=== PATIENT | female | born 1975 | race African-American/Black ===

== ENCOUNTER 2025-04-08 12:14 | Outpatient (CLI) | payer OTHER, SELFPAY ==
--- NOTE | ~2025-04-08 | MR_ITS ---
EXAMINATION: MR brain/brain stem wo/w con DATE: 04/08/2025 13:14 INDICATION: Anosmia TECHNIQUE: Magnetic resonance imaging (MRI) of the brain and brainstem was performed without and with 20 mL ProHance intravenous contrast. Sequences included sagittal and axial T1-weighted SE, axial dif fusion-weighted FS SE, axial 3D SWAN, axial T2-weighted FLAIR, and axial T2-weighted FSE. Postcontras t axial and coronal T1-weighted SE was obtained. Apparent diffusion coefficient (ADC) maps were creat ed. COMPARISON: None. FINDINGS: There are no areas of restricted diffusion to suggest acute infarction. No intracranial hemorrhage or abnormal intracranial mass lesion. There are scattered areas of nonspecific increased T2-weighted si gnal intensity in the cerebral white matter, predominantly involving the deep and periventricular whi te matter. There are no intraparenchymal signal abnormalities seen on the other pulse sequences. The ventricles are symmetric and normal in size. There are no abnormal extra-axial fluid collections. Bert w voids are seen in the cerebral arteries on the T2-weighted sequences consistent with their expected patency. Mild mucoperiosteal thickening in the bilateral ethmoid sinuses. Visualized orbits and soft tissues are unremarkable. There are no areas of abnormal enhancement on the post contrast images. IMPRESSION: 1. Normal for age brain. No acute intracranial process or abnormally enhancing brain lesions. Reviewed, dictated and finalized at location A.
--- OUTSIDE RECORDS SUMMARY | 2025-04-08 12:21 | XMS_ITS | Patient Health Record ---
Author Organization [facility] Address [address] [place] [address] Care Team Providers Care Blackjack Supervisor Name Role Phone Elmer Mayorga [phone] Allergies No Known Allergies Reason For Referral No Information Social History Tobacco Use: Social History Observation Description Date Details (start date - stop date) Never Smoker NA - NA Tobacco Use/Smoking Question Answer Notes Are you a nonsmoker Plan Of Treatment No Information Medical (General) History Surgical History Surgery Date(Month/Year)
--- OUTSIDE RECORDS SUMMARY | 2025-04-08 12:22 | XMS_ITS | Clinical Summary ---
Author Organization [facility] Address [address] [place] [address] Phone Care Team Providers Care Ultrasonic Hand Solderer Name Role Phone Unavailable Primary Care Provider Unavailabl e Allergies No known active allergies Medications amLODIPine (NORVASC) 10 mg tablet Take 1 Tablet (10 mg) by mouth daily. 30 Tablet 01/03/2022 Active Active Problems Problem Noted Date Diagnosed Date Uncontrolled hypertension 01/01/2022 Morbidly obese 01/01/2022 Pulmonary nodule 01/01/2022 Resolved Problems Problem Noted Date Diagnosed Date Resolved Date Other chest pain 01/01/2022 01/02/2022 Family History Medical History Relation Name Comments Lung Cancer Maternal Grandmother Lung Cancer Mother Relation Name Status Comments Maternal Grandmother Mother Social History Tobacco Use Types Packs/Day Years Used Date Smoking Tobacco: Former Alcohol Use Standard Drinks/Week Comments Yes 0 (1 standard drink = 0.6 oz pur e alcohol) Comments Unknown Sex and Gender Information Value Date Recorded Sex Assigned at Not on file Legal Sex Female 12:50 PM [employer]UMBER BU[employer]ER Gender Identity Not on file Sexual Orientation Not on file Last Filed Vital Signs Vital Sign Reading Time Taken Comments Blood Pressure 139/97 01/02/2022 12:00 PM LUMBER BUYER Pulse 87 01/02/2022 12:00 PM LUMBER BUYER Temperature 37.2 C (99 F) 01/02/2022 12:00 PM LUMBER BUYER Respiratory Rate 21 01/02/2022 12:0 0 PM LUMBER BUYER Oxygen Saturation 100% 01/02/2022 12: 00 PM LUMBER BUYER Inhaled Oxygen Concentration - - Weight 131.7 kg (290 lb 6.4 oz) 01/01/2022 6:07 PM LUMBER BUYER Height 175.3 cm (5' 9 ) 01/01/2022 6:07 PM LUMBER BUYER Body Mass Index 42.88 01/01/2022 6:07 PM LUMBER BUYER Plan of Treatment Health Maintenance Due Date Last Done Comments DTAP/TDAP/TD VACCINES (1 - Tdap) 1992 HEPATITIS B VACCINES (1 of 3 - 19+ 3-dose series) 02/26 HPV/Cotest (21-29) 1994 CERVICAL CANCER SCREENING 2003 HPV/Cotest (30-65) 2003 PAP SMEAR 2003 BREAST CANCER SCREENING 2013 COLORECTAL SCREENING 2018 Colorectal Cancer Screening 2018 FIT-DNA Q 3 years 2018 FIT/FOBT Q 1 year 2018 Flex Sig/CT Colonography Q 5 years 2018 ZOSTER VACCINE (1 of 2) 2023 INFLUENZA VACCINE (#1) 2024 Pre-Diabetes and Diabetes Screening 01/01/202501/01 Procedures Procedure Name Priority Date/Time Associated Diagnosis Comments HEMOGLOBIN A1C Stat 01/01/2022 1:19 PM LUMBER BUYER from Last 3 Months or Most Recently Relevant to Health Maintenance Results * HEMOGLOBIN A1C (01/01/2022 1:19 PM LUMBER BUYER) HEMOGLOBIN A1C 5.5 <5.7 % 01/01/2022 6:11 PM LUMBER BUYER [facility] EST. AVG GLUCOSE, A1C 111 mg/dL 01/01/2022 6:11 PM LUMBER BUYER [facility] Blood Venipuncture / Unknown 01/01/2022 1:19 PM LUMBER BUYER 01/01/2022 1:47 PM LUMBER BUYER Narrative [facility] - 01/01/2022 6:11 PM LUMBER BUYER HGB A1C INTERPRETATION NORMAL: <5.7% PRE-DIABETES: 5.7 - 6.4% DIABETES: 6.5% OR GREATER us Tia GODDARD CHEMISTRY ORDERABLES Final Re sult [facility] CLIA# [id number] [address] [place] [address] from Last 3 Months or Most Recently Relevant to Health Maintenance Insurance Advance Directives For more information, please contact: [phone] * Full Code (Latest Code Status on File) Date Activated Date Inactivated Comments 01/01/2022 11:48 PM 01/02/2022 8:06 PM
--- OUTSIDE RECORDS SUMMARY | 2025-04-08 12:22 | XMS_ITS | Data Portability ---
Author Organization [place] [facility] [employer] [facility] [place], Main Office Address [address] [place] [address] Assessment Encounter Date Assessment Date Assessment LastModified by Organization Details LastModified Time 02/15/2025 02/15/2025 Flu shot: declines COVID vaccines: declines TDap: declines Mammogram: 2022, ordered today WWE: Normal 05/18/2023 [email or web address] Not available 02/15/2025 14:21:14 Plan of Treatment Reminders Order Date Submit Date Provider Last Modified By Organization Details Last Modified Time Details Appointments Follow Up 15 2024 01:00P LIANE Dailey Not available Not available Not available Lab urinalysi s, dipstick 2024 025 [facility], [address] [place] [address], [address], 03/14/2025 16:21:21 lipid panel, serum 2024 025 [facility], [address], [place], [address], 02/22/2025 08:20:24 vaginal pathogens panel, WILBERT+probe , vaginal fluid 2024 025 [facility], [address], [place], [address], 02/22/2025 08:20:24 HbA1c (hemoglob in A1c), blood 2024 025 [email or web address] [facility], [address], [place], [address], 02/22/2025 08:20:23 CBC w/ auto diff 2024 025 [place] [id number] [facility], 2022 [address], [address], [place], [address], 02/22/2025 08:20:24 CMP, serum or plasma 2024 025 RANCHO CORDOVA [facility], [address], [place], [address], 02/19/2025 12:35:38 TSH, ultra-sen sitive, serum 2024 025 [facility], [address], [place], [address], 02/22/2025 08:20:24 pap, IG + reflex HR HPV 2022 023 [facility] (Lab), [address] [place], [address], 05/19/2023 23:46:16 lipid panel, serum [address] (Lab), [address] [place], [address], 05/11/2023 08:29:11 TSH, serum or plasma [address] (Lab), [address] [place], [address], 05/11/2023 08:29:10 CBC w/ auto diff [address] (Lab), [address] [place], [address], 05/11/2023 08:29:10 CMP, serum or plasma 2022 023 [facility] (Lab), [address] [place], [address], 05/11/2023 08:29:10 glycohemo globin, total, blood 2022 023 [facility] (Lab), [address] [place], [address], 05/11/2023 08:29:10 Referral otolaryng ologist referral 2022 023 [email or web address] Bang Machuca MD, [address], [place], [address], 05/09/2023 11:51:51 Procedures None recorded. Surgeries None recorded. Imaging MRI, brain, w/wo contrast - Updated order. 2024 025 [facility], [address] [facility] [address], [place], [address], 04/08/2025 11:48:16 MAMMO, screening , digital, bilateral - Please call patient to schedule. 2024 025 [facility], [address], [place], [address], 02/18/2025 08:55:19 MAMMO, screening , digital, bilateral 2022 [email or web address] [place] [address] - Radiology, [address] [place], [address], 04/27/2023 16:26:33 CT, chest, w/o contrast - multiple lung nodules found on 02/02/22 ct chest. 1 year fu now from january 2022 imaging. 2022 023 [facility] - Radiology, [address] [place], [address], 05/17/2023 16:02:58 Medication Orders losartan 50 mg tablet 2024 025 [id number], [address], [place], [id number], 02/15/2025 14:26:28 doxycycli ne hyclate 100 mg capsule [address] [facility], [address] [place] [address], [place], [id number], 05/17/2023 17:30:27 losartan 100 mg tablet [address] [facility]995, [address], [place], [id number], 02/15/2025 14:05:09 Patient TargetsNo targets recorded. Patient Instructions Encounter Date Encounter Id Patient Instructions Last Modified By Organization Details Last Modified Time 04/13/2023 [id number] FU in 1 year for wellness. FU in 6 mo for htn. [email or web address] Not available 04/13/2023 17:26:15 Reason for Referral Mapping Specialist Referral fo r Loss of sense of smell Referring Physician: Jael Ortiz, Family Medicine, Encounter Date: 04/13/2023 Results Created Date Observation Date Name Description Value Unit Range Abnormal Flag Note LastModifiedBy Organization Detail LastModifiedTime 05/17/2005/17/2023 CBC/C OMPLE TE BLD COUNT W/DIF F white blood cells 7.9 x10'3 /uL 4.2-10 .8 Not Available [facility] (Lab) [address] [place], [address], 05/17/2023 10:47:45 05/17/2005/17/2023 CBC/C OMPLE TE BLD COUNT W/DIF F red blood cells 4.39 x10'6 /uL 3.80-5 .20 Not Available [facility] (Lab) [address] [place], [address], 05/17/2023 10:47:45 05/17/20 23 05/17/2023 CBC/C OMPLE TE BLD COUNT W/DIF F hemoglobin 13.9 g/dL 12.0-1 5.6 Not Available [facility] (Lab) [address] [place], [address], 05/17/2023 10:47:45 05/17/20 23 05/17/2023 CBC/C OMPLE TE BLD COUNT W/DIF F hematocrit 42.4 % 35.7-4 5.7 Not Available [facility] (Lab) [address] [place], [address], 05/17/2023 10:47:45 05/17/20 23 05/17/2023 CBC/C OMPLE TE BLD COUNT W/DIF F mean red cell volume 96.6 fL 82.0-9 9.0 Not Available [facility] (Lab) [address] [place], [address], 05/17/2023 10:47:45 05/17/20 23 05/17/2023 CBC/C OMPLE TE BLD COUNT W/DIF F mean red cell hemoglobin 31.7 pg 27.0-3 3.0 Not Available [facility] (Lab) [address] [place], [address], 05/17/2023 10:47:45 05/17/20 23 05/17/2023 CBC/C OMPLE TE BLD COUNT W/DIF F mean RBC HGB concentratio n 32.8 g/dL 31.0-3 6.0 Not Available [facility] (Lab) [address] [place], [address], 05/17/2023 10:47:45 05/17/20 23 05/17/2023 CBC/C OMPLE TE BLD COUNT W/DIF F red cell distribution width 13.7 % 11.8-1 5.5 Not Available [facility] (Lab) [address] [place], [address], 05/17/2023 10:47:45 05/17/20 23 05/17/2023 CBC/C OMPLE TE BLD COUNT W/DIF F platelets 225 x10'3 /uL 150-40 0 Not Available [facility] (Lab) [address] [place], [address], 05/17/2023 10:47:45 05/17/20 23 05/17/2023 CBC/C OMPLE TE BLD COUNT W/DIF F mean platelet volume 10.2 fL 9.0-12 .4 Not Available [facility] (Lab) [address] [place], [address], 05/17/2023 10:47:45 05/17/20 23 05/17/2023 CBC/C OMPLE TE BLD COUNT W/DIF F neutrophils 60.3 % 39.0-7 2.0 Not Available [facility] (Lab) [address] [place], [address], 05/17/2023 10:47:45 05/17/20 23 05/17/2023 CBC/C OMPLE TE BLD COUNT W/DIF F lymphocytes 31.5 % 16.0-4 7.0 Not Available [facility] (Lab) [address] [place], [address], 05/17/2023 10:47:45 05/17/20 23 05/17/2023 CBC/C OMPLE TE BLD COUNT W/DIF F monocytes 6.3 % 5.0-12 .0 Not Available [facility] (Lab) [address] [place], [address], 05/17/2023 10:47:45 05/17/20 23 05/17/2023 CBC/C OMPLE TE BLD COUNT W/DIF F eosinophils 1.1 % 1.0-7. 0 Not Available [facility] (Lab) [address] [place], [address], 05/17/2023 10:47:45 05/17/20 23 05/17/2023 CBC/C OMPLE TE BLD COUNT W/DIF F basophils 0.4 % 0.0-2. 0 Not Available [facility] (Lab) [address] [place], [address], 05/17/2023 10:47:45 05/17/20 23 05/17/2023 CBC/C OMPLE TE BLD COUNT W/DIF F immature granulocytes 0.4 % 0.00-0 .50 Not Available [facility] (Lab) [address] [place], [address], 05/17/2023 10:47:45 05/17/20 23 05/17/2023 CBC/C OMPLE TE BLD COUNT W/DIF F neutrophils, absolute count 4.75 x10'3 /uL 1.5-8. 0 Not Available [facility] (Lab) [address] [place], [address], 05/17/2023 10:47:45 05/17/20 23 05/17/2023 CBC/C OMPLE TE BLD COUNT W/DIF F lymphocytes, absolute count 2.48 x10'3 /uL 1.07-3 .43 Not Available [facility] (Lab) [address] [place], [address], 05/17/2023 10:47:45 05/17/20 23 05/17/2023 CBC/C OMPLE TE BLD COUNT W/DIF F monocytes, absolute count 0.50 x10'3 /uL 0.29-0 .99 Not Available [facility] (Lab) [address] [place], [address], 05/17/2023 10:47:45 05/17/20 23 05/17/2023 CBC/C OMPLE TE BLD COUNT W/DIF F eosinophils, absolute count 0.09 x10'3 /uL 0.02-0 .53 Not Available [facility] (Lab) [address] [place], [address], 05/17/2023 10:47:45 05/17/20 23 05/17/2023 CBC/C OMPLE TE BLD COUNT W/DIF F basophils, absolute count 0.03 x10'3 /uL 0.01-0 .08 Not Available [facility] (Lab) [address] [place], [address], 05/17/2023 10:47:45 05/17/20 23 05/17/2023 CBC/C OMPLE TE BLD COUNT W/DIF F immature granulocytes ,absolute 0.03 x10'3 /uL 0.00-0 .05 Not Available [facility] (Lab) [address] [place], [address], 05/17/2023 10:47:45 05/17/20 23 05/17/2023 CBC/C OMPLE TE BLD COUNT W/DIF F nucleated red blood cells 0.0 % -0 Not Available [facility] (Lab) [address] [place], [address], 05/17/2023 10:47:45 05/17/20 23 05/17/2023 CBC/C OMPLE TE BLD COUNT W/DIF F NRBC# 0.00 x10'3 /uL Not Available [facility] (Lab) [address] [place], [address], 05/17/2023 10:47:45 05/17/20 23 05/17/2023 COMPR EHENS LUIS METAB OLIC PANEL sodium 140 mmol/ L 137-14 5 Not Available [facility] (Lab) [address] [place], [address], 05/17/2023 10:59:36 05/17/20 23 05/17/2023 COMPR EHENS LUIS METAB OLIC PANEL potassium 4.4 mmol/ L 3.5-5. 1 Not Available [facility] (Lab) [address] [place], [address], 05/17/2023 10:59:36 05/17/20 23 05/17/2023 COMPR EHENS LUIS METAB OLIC PANEL chloride 104 mmol/ L 98-107 Not Available [facility] (Lab) [address] [place], [address], 05/17/2023 10:59:36 05/17/20 23 05/17/2023 COMPR EHENS LUIS METAB OLIC PANEL carbon dioxide 26 mmol/ L 22-30 Not Available [facility] (Lab) [address] [place], [address], 05/17/2023 10:59:36 05/17/20 23 05/17/2023 COMPR EHENS LUIS METAB OLIC PANEL anion gap 14.4 mmol/ L 14-22 Not Available [facility] (Lab) [address] [place], [address], 05/17/2023 10:59:36 05/17/20 23 05/17/2023 COMPR EHENS LUIS METAB OLIC PANEL glucose 100 mg/dL 70-99 high Not Available [facility] (Lab) [address] [place], [address], 05/17/2023 10:59:36 05/17/20 23 05/17/2023 COMPR EHENS LUIS METAB OLIC PANEL BUN 12 mg/dL 8-19 Not Available [facility] (Lab) [address] [place], [address], 05/17/2023 10:59:36 05/17/20 23 05/17/2023 COMPR EHENS LUIS METAB OLIC PANEL creatinine 0.92 mg/dL 0.66-1 .25 Not Available [facility] (Lab) [address] [place], [address], 05/17/2023 10:59:36 05/17/20 23 05/17/2023 COMPR EHENS LUIS METAB OLIC PANEL GFR >60 Refer ence Range : [place] ge GFR Healt hy Adult : >60 mL/mi n/1.7 3 m2 Chron ic Kidne y Disea se: 15-60 mL/mi n/1.7 3 m2 Kidne y Failu re: <15/m L/min /1.73 m2 www.n iddk. nih.g ov The MDRD study equat ion has not been valid ated in child harley <18 years of age; pregn ant women ; the elder ly >85 years of age; or in some racia l or ethni c subgr oups, such as Hispa nics. Outsi de the valid ated baron eters , estim ated GFR is less accur ate, requi ring clini jessica judgm ent on a case- by-ca se basis . Clini jessica inter preta tion for other races and ages must be made by the clini arnold. The MDRD study equat ion has not been valid ated for the evalu ation of serum creat inine relat ed to nutri papo l statu s or medic ation usage . For perso ns <18 years of age, a pedia tric GFR calcu lator is avail able on the [facility] websi te: https ://jaziel curry.tyler andres.o rg/pr manaess edinsonal s/kdo qi/gf r_cal culat or Not Available [facility] (Lab) [address] [place], [address], 05/17/2023 10:59:36 05/17/20 23 05/17/2023 COMPR EHENS LUIS METAB OLIC PANEL alkaline phosphatase 63 U/L 38-[address] [facility] (Lab) [address] [place], [address], 05/17/2023 10:59:36 05/17/20 23 05/17/2023 COMPR EHENS LUIS METAB OLIC PANEL alanine aminotransfe rase 17 U/L 0-35 Not Available [facility] (Lab) [address] [place], [address], 05/17/2023 10:59:36 05/17/20 23 05/17/2023 COMPR EHENS LUIS METAB OLIC PANEL aspartate aminotransfe rase 23 U/L 15-37 Not Available [facility] (Lab) [address] [place], [address], 05/17/2023 10:59:36 05/17/20 23 05/17/2023 COMPR EHENS LUIS METAB OLIC PANEL bilirubin, total 0.70 mg/dL 0.20-1 .30 Not Available [facility] (Lab) [address] [place], [address], 05/17/2023 10:59:36 05/17/20 23 05/17/2023 COMPR EHENS LUIS METAB OLIC PANEL calcium 8.8 mg/dL 8.4-10 .2 Not Available [facility] (Lab) [address] [place], [address], 05/17/2023 10:59:36 05/17/20 23 05/17/2023 COMPR EHENS LUIS METAB OLIC PANEL total protein 7.3 g/dL 6.3-8. 2 Not Available [facility] (Lab) [address] [place], [address], 05/17/2023 10:59:36 05/17/20 23 05/17/2023 COMPR EHENS LIUS METAB OLIC PANEL albumin 3.8 g/dL 3.4-5. 0 Not Available [facility] (Lab) [address] [place], [address], 05/17/2023 10:59:36 05/17/20 23 05/17/2023 COMPR EHENS LUIS METAB OLIC PANEL globulin 3.5 g/dL 2.6-4. 2 Not Available [facility] (Lab) [address] [place], [address], 05/17/2023 10:59:36 05/17/20 23 05/17/2023 COMPR EHENS LUIS METAB OLIC PANEL A/G ratio 1.1 ratio 1.0-2. 0 Not Available [facility] (Lab) [address] [place], [address], 05/17/2023 10:59:36 05/17/20 23 05/17/2023 LIPID PANEL cholesterol 158 mg/dL 140-19 9 NIH MAGGY NSUS RECOM MENDA TION FOR SETH STERO L: ADULT CHILD LOW RISK: <200 <170 BORDE RLINE : <200- 239 ----- HIGH RISK: >240 >200 Not Available [facility] (Lab) [address] [place], [address], 05/17/2023 10:59:42 05/17/20 23 05/17/2023 LIPID PANEL triglyceride s 122 mg/dL 0-150 NIH MAGGY NSUS REPOR T RECOM MENDA TION FOR TRIGL YCERI HERMAN: ADULT CHILD LOW RISK: <150 ----- BODER LINE: 150-1 99 ----- HIGH RISK: >200 ----- Not Available [facility] (Lab) [address] [place], [address], 05/17/2023 10:59:42 05/17/20 23 05/17/2023 LIPID PANEL HDL cholesterol 49 mg/dL 40- Not Available [facility] (Lab) [address] [place], [address], 05/17/2023 10:59:42 05/17/20 23 05/17/2023 LIPID PANEL LDL cholesterol, calculated 85 mg/dL 0-130 NIH MAGGY NSUS REPOR T RECOM MENDA TIONS FOR LDL: ADULT CHILD LOW RISK <130 <110 (OPTI MAL LDL) <100 ----- BORDE RLINE : 130-1 59 ----- HIGH RISK: >160 >130 A TRIGL YCERI DE RESUL T >400 INVAL IDATE S THE CALCU LATIO N FOR LDL FRACT IONAT ION - THE LDL RESUL T WILL NOT BE REPOR BRAYDON. Not Available [facility] (Lab) [address] [place], [address], 05/17/2023 10:59:42 05/17/20 23 05/17/2023 TSH W/REF KASSANDRA FT4 TSH with reflex free T4 1.160 uIU/m L 0.465- 4.680 Not Available [facility] (Lab) [address] [place], [address], 05/17/2023 11:30:11 05/17/20 23 05/17/2023 HEMOG LOBIN A1C HA1C 6.7 % 4.0-6. 0 high Diabe samantha Scree grace Crite vivian: <5.7% Consi stent with absen ce of diabe samantha 5.7-6 .4% Consi stent with incre ased risk for diabe samantha (pred iabet es) >OR=6 .5% Consi stent with diabe samantha REFER ENCE: Diabe samantha Care 2016, 39(Pacheco ppl.1 ):s13 -s22 Not Available [facility] (Lab) [address] [place], [address], 05/17/2023 15:17:04 03/14/20 25 03/14/2025 urina lysis , dipst ick Leukocytes (reference range: negative chuck/ l) Negati ve Not Available [address], [address], 03/14/2025 16:09:29 03/14/20 25 03/14/2025 urina lysis , dipst ick Nitrite (reference rage: negative mg/dl) negati ve Not Available [address], [address], 03/14/2025 16:09:29 03/14/20 25 03/14/2025 urina lysis , dipst ick Urobilinogen (reference range: 0.2-1 mg/dl) 1 Not Available [address], [address], 03/14/2025 16:09:29 03/14/20 25 03/14/2025 urina lysis , dipst ick Protein (reference range: negative mg/dl) Small Not Available [address], [address], 03/14/2025 16:09:29 03/14/20 25 03/14/2025 urina lysis , dipst ick pH (reference range: 5-7) 6.5 Not Available [address], [address], 03/14/2025 16:09:29 03/14/20 25 03/14/2025 urina lysis , dipst ick Blood (reference range: negative Praneeth/ l) Negati ve Not Available [address], [address], 03/14/2025 16:09:29 03/14/20 25 03/14/2025 urina lysis , dipst ick Specific Stanton (reference range: 1.005-1.030) 1.020 Not Available [address], [address], 03/14/2025 16:09:29 03/14/20 25 03/14/2025 urina lysis , dipst ick Ketone (reference range: negative mg/dl) Small Not Available [address], [address], 03/14/2025 16:09:29 03/14/20 25 03/14/2025 urina lysis , dipst ick Bilirubin (reference range: negative mg/dl) Small Not Available [address], [address], 03/14/2025 16:09:29 03/14/20 25 03/14/2025 urina lysis , dipst ick Glucose (reference range: negative mg/dl) Negati ve Not Available [address], [address], 03/14/2025 16:09:29 03/14/20 25 03/14/2025 urina lysis , dipst ick Appearance Clear Not Available [address], [address], 03/14/2025 16:09:29 03/14/20 25 03/14/2025 urina lysis , dipst ick Color Jones Not Available [address], [address], 03/14/2025 16:09:29 05/17/20 23 05/17/2023 scree grace breas t roberto, bilat [facility] [address] [address] Patien t Name: ASHLEY MARRERO Access ion #: [id number] Sex: F : 1974 4 Locati on: RAD Attend ing Physic saadia: DYLON ORTIZ Orderi ng Physic saadia: DYLON ORTIZ Exam Date: 023 9:15 AM Exam Name: MG SCRHal BREAST ROBERTO BILAT Admitt ing Diagno sis(es ): MAMMOG ENRICO REPORT - FINAL EXAM: MG SCRN BREAST ROBERTO BILAT HISTOR Y: SCREEN ING MAMMOG TONI 48-yea r-old female with no curren t breast compla ints. COMPAR LIZZ: 2021, 2017 TECHNI QUE: Bilate ral CC and MLO views of the breast s were perfor med. Digita l Mammog enrico images were obtain ed. CAD (compu ter assist ed detect ion) was utiliz ed. 3D Digita l breast tomosy nthesi s was perfor med and used in the interp retati on of images . FINDIN GS: There are scatte red areas of fibrog landul ar densit y. No masses , asymme tries, suspic ious calcif icatio ns, or charleen ectura l Page 1 of 2 [facility] Zelda cates Name: ASHLEY MARRERO Access ion #: [id number] Sex: F : 1974 4 Exam Date: 9:15 AM Exam Name: SCRN BREAST ROBERTO BILAT Admitt ing Diagno sis(es ): distor tion are seen. IMPRES DOMINICK: BIRADS 1: Assess ment comple te. Negati ve. Recomm end annual screen ing mammog enrico. Accord ing to the [employer], yearly mammog danny are recomm ended starti ng at age 40 and contin uing as long as the woman is in good health . Clinic al Breast Exam should be part of the period ic health exam-a bout every 3 years for women in their 20s and 30s and every year for women 40 and over. Breast self-e xam is an option for women in their 20s. Any breast change noted on the breast self-e xam she would be report ed prompt ly to the zelda cates's health care provid er. A negati ve mammog enrico report should not discou rage follow -up or biopsy of a clinic ally signif icant findin g and/or abnorm ality. Dense breast tissue may obscur e small neopla sms. This zelda cates has been entere d into a mammog enrico remind er system with a target date for her next mammog toni. Create d and electr onical ly signed by: Joao gagnon MD Signed Date: 10:06 AM (CT) Dictat ed by: Joao gagnon MD DD: 6/20/2 023 10:06 AM (CT) DT: 023 10:06 AM (CT) Page 2 of 2 [email or web address] [facility] (Imaging) [address] [place], [address], 05/17/2023 17:45:48 05/17/20 23 05/17/2023 CT, chest , w/o contr ast [facility] [address] [facility] [place] [address] [phone] Patien t Name: ASHLEY MARRERO Access ion #: [id number] Sex: F : 1974 0 Locati on: MOP Attend ing Physic saadia: DYLON ORTIZ Orderi ng Physic saadia: DYLON ORTIZ Exam Date: 023 9:20 AM Exam Name: CT CHEST WO Admitt ing Diagno sis(es ): RADIOL OGY REPORT - FINAL EXAM: CT CHEST WO HISTOR Y: pulm nodule s 48-yea r-old female with lung nodule , follow -up. COMPAR LIZZ: None availa ble. TECHNI QUE: Helica l CT images of the chest were perfor med withou t contra st. Sagitt al and moe l reform atted images were obtain ed. This CT exam was perfor med using one or more of the follow ing dose reduct ion techni ques: Automa braydon exposu re contro l, adjust ment of the mA and/or kV accord ing to patien t size, or use of iterat luis recons tructi on techni que. FINDIN GS: There is a 3 mm noncal cified pulmon antoinette nodule in the right lung along the horizo ntal fissur e (image 49, series 201). No pneumo thorax , pulmon antoinette edema, Page 1 of 2 [facility] Pati t Name: ASHLEY MARRERO Access ion #: [id number] Sex: F : 1974 0 Exam Date: 023 9:20 AM Exam Name: CT CHEST WO Admitt ing Diagno sis(es ): pleura l effusi ons, or consol idativ e infilt rates. No suspic ious medias tinal or axilla ry adenop athy. The heart is upper limits of normal in size. No thorac ic aortic aneury sm. No fractu res are identi fied about the bony thorax . The liver is border line diffus e fatty densit y. There is modera te to severe thorac ic degene rative disc diseas e. There is at least 1 gallst one in the gallbl adder lumen, not fully imaged here. IMPRES DOMINICK: 3 mm right lung noncal cified pulmon antoinette nodule along the horizo ntal fissur e. Recomm end compar lizz with any previo us outsid e CT imagin g to assess for stabil ity of this appear ance. On its own, a 3 mm pleura l based noncal cified pulmon antoinette nodule does not requir e any future imagin g follow -up. Create d and electr onical ly signed by: Joao gagnon MD Signed Date: 3:00 PM (CT) Dictat ed by: Joao gagnon MD DD: 3:00 PM (CT) DT: 3:00 PM (CT) Page 2 of 2 [email or web address] [facility] (Imaging) [address] [place], [address], 05/17/2023 17:49:06 Result Notes None recorded. Problems Name Problem SNOMED Code Status Onset Date Resolution Date Notes Provider Name and Address Organization Details Recorded Time Chronic sinusitis 13661650 Active 2021 Not Available [facility] 3 00:26:18 Loss of sense of smell 22138256 Active 2021 Not Available [facility] 3 00:26:19 Multiple nodules of lung 483838505 Active 2021 Not Available [facility] 3 00:26:19 Essential hypertens ion 49967389 Active 2021 Not Available [facility] 3 00:26:19 Furuncle of right axilla [id number] 082642 Completed 202202/15/2025 LIANE Sifuentes [address], [address], [place], [address] , [employer] 5 14:14:17 Type 2 diabetes mellitus without complicat ion 483570506 Active 2022 Jael Ortiz NP [address], [address], [place], [address] , [employer] 3 17:39:35 Sexually transmitt ed infectiou s disease 5431645 Active 2024 LIANE Sifuentes [address], [address], [place], [address] , [email or web address] 5 14:20:52 Dysuria 16338454 Active 2024 LIANE Sifuentes [address], [address], [place], [address] , [employer] 5 16:09:25 Problem Notes None recorded. Procedures Surgical History Date Name Laterality Status Provider Name and Address Organization Details Recorded Time 05/17/20 23 Most Recent Mammogram completed Jael Ortiz NP [address], [address], [place], [address], [email or web address] 05/17/2023 17:45:33 09/03/20 14 Hysterectomy completed Not Available [facility] 023 00:25:31 delivery completed Not Available [facility] 01/27/2023 00:25:31 Imaging Results Imaging Date Name Status LastModified by Organ [facility] Details LastModified Time 05/17/2023 screening breast roberto, bilat completed [email or web address] [place] [address] (Imaging) [address] [place], [address], 05/17/2023 17:45:48 05/17/2023 CT, chest, w/o contrast completed [email or web address] (Imaging) [address] [place], [address], 05/17/2023 17:49:06 Procedure Notes None recorded. Medical Equipment None Reported. Allergies No known drug allergies Medications Name Sig Start Date Stop Date Status Note LastModified by Organization Details LastModified Time losartan 50 mg tablet Take 1 tablet every day by oral route as directed for 90 days. 2024 active Not Available Not Available Not Avai lable doxycycline hyclate 100 mg capsule Take 1 capsule twice a day by oral route for 10 days. 05/17 completed Not Available Not Available Not Available amlodipine 10 mg tablet TAKE 1 TABLET BY MOUTH EVERY DAY 02/15 completed Not Available Not Available Not Available losartan 25 mg tablet Take 1 tablet every day by oral route. 05/17 completed Not Available Not Available Not Available mometasone 50 mcg/actuati on nasal spray Zoar 2 sprays every day by intranasa l route for 30 days. 04/13 completed Not Available Not Available Not Available methylpredn isolone 4 mg tablets in a dose pack Take 1 dose pk by oral route. 04/13 completed Not Available Not Available Not Available cefdinir 300 mg capsule Take 1 capsule every 12 hours by oral route for 10 days. 04/13 completed Not Available Not Available Not Available losartan 100 mg tablet Take 1 tablet every day by oral route. 02/15 completed Not Available Not Available Not Available fluticasone propionate 50 mcg/actuati on nasal spray,suspe nsion Zoar 1 spray every day by intranasa l route. 04/13 completed Not Available Not Available Not Available Vitals Date Recorded Body mass index (BMI) Body height Body temperature Body weight Provider Name and Address Organization Details Last Updated DateTime 06/03/2022 41.3 kg/m2 175.26 cm 97.6 [degF] 516833.8 6 g Not Available [facility] 01/27/2023 00:25:42 Date Recorded Body height Body mass index (BMI) Body weight Body temperature Heart rate Respiratory rate Oxygen saturation Oxygen saturation in Arterial blood by Pulse oximetry Pain severity - 0-10 verbal numeric rating [Score] - Reported Systolic blood pressure Diastolic blood pressure Provider Name and Address Organization Details Last Updated DateTime 175.26 cm 43 kg/m2 145186. 83 g 97.4 [degF] 85 /min 15.99 /min 98 % 98 % 0 154 mm[Hg] 98 mm[Hg] Jael Eng RN [facility] SSN Funding [facility] 3 16:54:12 Date Recorded Body height Body mass index (BMI) Body weight Body temperature Heart rate Respiratory rate Oxygen saturation Oxygen saturation in Arterial blood by Pulse oximetry Pain severity - 0-10 verbal numeric rating [Score] - Reported Systolic blood pressure Diastolic blood pressure Provider Name and Address Organization Details Last Updated DateTime 3 175.26 cm 43.3 kg/m2 728921. 01 g 97 [degF] 81 /min 16 /min 97 % 97 % 0 134 mm[Hg] 82 mm[Hg] Jael Eng RN [facility] 3 17:32:58 Date Recorded Body weight Body mass index (BMI) Body height Body temperature Heart rate Respiratory rate Oxygen saturation Oxygen saturation in Arterial blood by Pulse oximetry Pain severity - 0-10 verbal numeric rating [Score] - Reported Systolic blood pressure Diastolic blood pressure Provider Name and Address Organization Details Last Updated DateTime 5 342824. 29 g 39.9 kg/m2 175.26 cm 97.2 [degF] 62 /min 20 /min 99 % 99 % 0 170 mm[Hg] 110 mm[Hg] Jael Eng RN [facility] 5 14:07:31 Social History Question Answer Notes LastModified by Organizat ion Details LastModified Time Tobacco Smoking Status Never Smoker Not Available [facility] 01/27/2023 00:25:17 Do You Have An Advance Directive? No [id number] Information not available 01/27/2023 Do You Wear A Helmet When Biking? No MIGRATION.[id number] 9382 Information not available 01/27/2023 Is Blood Transfusion Acceptable In An Emergency? Yes Information not available 04/13/2023 What Is Your Level Of Caffeine Consumption? Occasional [id number] Information not available 01/27/2023 What Is Your Code Status? Full Code Information not available 04/13/2023 In The 14 Days Before Symptom Onset, Have You Had Close Contact With A Laboratory-confir med COVID-19 While That Case Was Ill? No [id number].[id number] 3537 Information not available 01/27/2023 In The 14 Days Before Symptom Onset, Have You Had Close Contact With A Person Who Is Under Investigation For COVID-19 While That Person Was Ill? No [id number] Information not available 01/27/2023 What Type Of Diet Are You Following? REGULAR MIGRATION.[id number] 3068 Information not available 01/27/2023 What Is The Highest Grade Or Level Of School You Have Completed Or The Highest Degree You Have Received? [id number] MIGRATION.863472 6030 Information not available 01/27/2023 How Many Days Of Moderate To Strenuous Exercise, Like A Brisk Walk, Did You Do In The Last 7 Days? 4 Information not available 04/13/2023 On Those Days That You Engage In Moderate To Strenuous Exercise, How Many Minutes, On Average, Do You Exercise? 60 Information not available 04/13/2023 Have There Been Any Changes To Your Family Or Social Situation? No Information no t available 04/13/2023 What Is The Fluoride Status Of Your Home? Unknown MIGRATION.[id number] Information not available 01/27/2023 Do You Use Insect Repellent Routinely? Yes MIGRATION.[id number] 0243 Information not available 01/27/2023 [facility] MIGR[facility].[id number] 5765 Information not available 01/27/2023 Do You Have A Medical Power Of Code Machine Operator? No MIGRATION.[id number] 2551 Information not available 01/27/2023 How Many Children Do You Have? 4 Information not available 04/13/2023 Do You Have Any Pets? No MIGRATION.[id number] 0762 Information not available 01/27/2023 What Is Your Relationship Status? Single MIGRATION.[id number] 3384 Information not available 01/27/2023 Do You Use Your Seat Belt Or Car Seat Routinely? Yes MIGRATION.943551 8210 Information not available 01/27/2023 Do You Have Smoke And Carbon Monoxide Detectors In Your Home? Yes MIGRATION.146717 6565 Information not available 01/27/2023 Are You Passively Exposed To Smoke? No MIGRATION.345918 7845 Information not available 01/27/2023 Are There Any Smokers In Your House? No MIGRATION.041000 2970 Information not available 01/27/2023 Do You Participate In Social Media? Yes MIGRATION.458574 8807 Information not available 01/27/2023 What Types Of Sporting Activities Do You Participate In? Nacho Information not available 04/13/2023 Do You Use Sunscreen Routinely? No MIGRATION.214197 6343 Information not available 01/27/2023 Have You Recently Traveled Abroad? No MIGRATION.153137 4862 Information not available 01/27/2023 Do You Have Any Dietary Restrictions? No MIGRATION.504764 7479 Information not available 01/27/2023 Sex: Female Functional Status Question Answer Note LastModified by Snappy shuttle Details LastModified Time What is your level of alcohol consumption? Occasional [id number].[id number] 26 Information not available 01/27/2023 Are you currently employed? Yes Information not available 04/13/2023 What is your occupation? [employer] Information not available 02/15/2025 What is your exercise level? Occasional [id number].[id number] 26 Information not available 01/27/2023 Mental Status Question Answer Note LastModified by Snappy shuttle Details LastModified Time Do you feel stressed (tense, restless, nervous, or anxious, or unable to sleep at night)? CD1162-1 [id number] Information not available 01/27/2023 Family History Relationship Description Onset Age of this Age Resolved Age Notes LastModified by Organization Details LastModified Time Mother Malignant neoplasm of lung [id number] Not available 01/27/2023 00:25:31 Maternal Grandmother Malignant neoplasm of lung [id number] Not available 01/27/2023 00:25:31 Maternal Aunt Malignant tumor of stomach [id number] Not available 01/27/2023 00:25:31 Medical History Condition Response BLINDNESS N RHEUMATIC FEVER N KIDNEY STONES N BLADDER PROBLEMS N MRSA N OTHER # 1 N POLIO N LUNG DISEASE/DISORDER N HISTORY OF DRUG ABUSE N RADIATION / CHEMOTHERAPY N COPD N Other # 2 N BLOOD DISEASES N SURGERY N EAR OR HEARING PROBLEMS N MUMPS N SHINGLES N FEMALE PROBLEMS / INFECTIONS N BOWEL PROBLEMS N DEPRESSION (INCLUDING POST ) N STROKE/TIA N THYROID DISEASE N ULCERS N BENIGN PROSTATIC HYPERPLASIA N MEASLES N CERVICALGIA N TB SKIN TEST N HYPOTENSION N MYOCARDIAL INFARCTION N PARAPELGIA N OBESITY N GERD/NAUSEA N ANEURYSM N URINARY/BLADDER/KIDNEY PROBLEMS N CORONARY ARTERY DISEASE (CAD) N MENIERE'S DISEASE N ADDICTION CONCERNS N ENDOMETRIOSIS N USE OF BLOOD THINNERS N SKIN PROBLEMS N EMPHYSEMA N GASTROINTESTINAL DISORDER N PARATHYROID DISEASE N MUSCLE,JOINT OR BONE PROBLEMS N GASTROINTESTINAL BLEEDING N BLOOD CLOTS N ASTHMA N CATARACTS N ERECTILE DYSFUNCTION N GI PROBLEMS N CHF N Low Testosterone N NEUROPATHY N INFERTILITY N AIDS/HIV N FRACTURES N CHEMOTHERAPY / RADIATION N VISION/EYE PROBLEMS N LIVER DISEASE N MALE HYPOGONADISM N HYPERTENSION Y TOURETTE'S N ANXIETY DISORDER N BLOOD TRANSFUSION N ANEMIA/BLOOD DISORDER N CHRONIC EAR INFECTIONS N BRONCHITIS N TUBERCULOSIS N GLAUCOMA N FOOT PROBLEM N DIVERTICULITIS N SLEEP APNEA N CHICKENPOX N ALLERGIES/HAYFEVER N INFECTIOUS DISEASE N PROSTATE N HEART ARRHYTHMIA N INSOMNIA N HIGH CHOLESTEROL / HYPERLIPIDEMIA N EYE PROBLEMS N HYPERTHYROIDISM N EATING DISORDER N EDEMA N CHRONIC PAIN SYNDROME N HYPOTHYROIDISM N CONSTIPATION N CAROTID BLOCKAGE N BACK / NECK PROBLEMS N HAVE YOU BEEN HOSPITALIZED OR SEEN IN [facility] IN THE PAST YEAR ? N ATHEROSCLEROSIS N BREAST PROBLEMS N DIALYSIS N ECZEMA N HISTORY WITH COMPLICATIONS WITH ANESTHES IA ? N FIBROMYALGIA N OSTEOPOROSIS N ARTHRITIS N NO SIGNIFICANT PAST MEDICAL HISTORY N APPENDICITIS N DIABETES, TYPE N BAD TEETH N SEASONAL ALLERGIES N HEARTBURN / REFLUX N ADD/ADHD N AUTISM SPECTRUM DISORDER (ASD) N HEPATITIS / LIVER DISEASE N PULMONARY DISEASE N GOUT N SLEEP DISORDER N ALZHEIMER'S DISEASE N PAIN N DEMENTIA N HERPES N SEIZURES/EPILEPSY N HEADACHES/MIGRAINES N VASCULAR DISEASE N PACEMAKER N DIZZINESS N HEART DISEASE/HEART PROBLEMS N KIDNEY DISEASE N SCARLET FEVER N MULTIPLE SCLEROSIS N MENTAL DISORDER/ILLNESS N DEVELOPMENTAL OR BEHAVIORAL DISORDERS N CANCER: SPECIFY N CARDIAC ARRHYTHMIA N PNEUMONIA N ATRIAL FIBRILLATION N Gall Stones N PULMONARY EMBOLISM N AUTOIMMUNE DISEASE N Gynecological History Statement/Question Response Abnormal Pap N Date of Last Mammogram 03/05/2022 Date of Last Colonoscopy Most Recent Bone Density Date of LMP Menses Monthly Y Date of Last Pap 05/18/2023 Date of Last Pap Smear Age at Menarche 11 Most Recent Mammogram 05/17/2023 Obstetrics History GPAL:G 0 P 0 0 0 0 Past Encounters Encounter ID Performer Location Encounter Start Date Encounter Closed Date Diagnosis/Indication Diagnosis SNOMED-CT Code Diagnosis ICD10 Code Diagnosis Note [id number] Phong Godoy MD [facility] [address] [address] 02/02/2022 00:00:00 02/02/2022 12:44:02 [id number] Phong Godoy MD [facility] [address] [address] 02/05/2022 00:00:00 02/05/2022 17:47:50 [id number] Bang Machuca MD [facility] [place] [address] [place] [address] 03/02/2022 00:00:00 03/02/2022 10:39:10 [id number] Phong Godoy MD [address] [address] 03/05/2022 00:00:00 03/05/2022 11:35:46 [id number] Phong Godoy MD [address] [address] 04/08/2022 00:00:00 04/08/2022 11:16:14 [id number] Bang Machuca MD [facility] [place] [address] [place] [address] 06/03/2022 00:00:00 06/03/2022 12:25:36 [id number] Jael Ortiz NP [address] [address] 04/13/2023 16:40:56 04/13/2023 17:27:30 Essential hypertension 13716512 I10 Losartan 100 mg po daily.Amlo dipine 10 mg po daily.<2gm sodium diet. Adult heal th examination 039485355 Z00.00 Encouraged well balanced meals, active lifestyle, and routine vision and dental appts. Anemia screening 4786570 07 Z13.0 Diabetes m ellitus screening 344548754 Z13.1 Thyroid di sorder screening 851739871 Z13.29 Hyperlipid emia screening 092252580 Z13.220 Screening for malignant neoplasm of breast 065343804 Z12.39 Mammogram [facility]. Loss of se nse of smell 86150289 R43.0 patient wanting alternate eval per ent. Furuncle o f right axilla 4313270028 0181536 L02.421 doxy bid for 10 days Multiple n odules of lung 986164939 R91.8 CT, chest repeated 1 year after 01/2022 found lung nodules. [id number] Jael Ortiz NP [address] [address] 05/17/2023 17:22:21 05/17/2023 18:06:58 Gynecologic examination 33525194 Z01.419 Encouraged well balanced meals, active lifestyle and routine vision and dental appts. Essential hypertension 81450182 I10 Losartan 100 mg po daily.Amlo dipine 10 mg po daily.<2gm sodium diet. Type 2 armen betes mellitus without complication 345008605 E11.9 A1C 6.7. Fasting glucose 100 H and trigs ok. Diet mods 05/17/23 [id number] Phong Godoy MD [address] [address] 02/15/2025 13:54:04 02/15/2025 14:44:05 Adult health examination 254582669 Z00.00 Patient is overall healthyDis cussed diet/exerc iseReviewe d health maintenanc ePatient questions answered Loss of se nse of smell 14103516 R43.0 Since 2021, MRI sinuses benign Essential hypertension 20265820 I10 Uncontroll ed and unmedicate d, discussed diet and exercise Type 2 armen betes mellitus without complication 826568475 E11.9 Last A1C 6.7, is not currently managing Screening mammography 24 717169 Z12.31 Venereal d isease screening 517198433 Z11.3 [facility], would like screening Hyperlipid emia screening 383133732 Z13.724 [id number] Phong Godoy MD [address] [address] 03/14/2025 16:01:52 03/14/2025 16:12:20 Dysuria 29734637 R30.0 Health Concerns Section Related Observation LastModified by Organization Detai ls LastModified Time None Recorded Concern Status LastModified by Organization Details LastModified Time None Recorded Advance Directives Directive N: Payers Encounter Date Sequence Insurance Name Policy Number Policy Cisneros Covered Member ID Cisneros Member ID Guarantor Name 04/13/2023 1 [facility] Ashley Marrero [id number] Ashley Marrero 05/17/2023 1 [facility] Ashley Marrero [id number] Ashley Marrero 02/15/2025 1 [facility] Ashley Marrero [id number] Ashley Marrero 03/14/2025 1 [facility] Ashley Marrero [id number] Ashley Marrero Notes Date Note Type Note Provider Name and Address Organization Details Recorded Time 04/13/2023 text/html Here for wellnes s visit and a few other concerns. Came here from work.BP at home has been good at home. 140/80s at home.Taking vitamin for heart health. Sense of smell and taste is off. would like second ENT opinion. Saw rosemblum but flonase isn't helping.Has boil under right arm. draining, tenderDue for mammogram, pap, labs. Jael Ortiz NP [address], [address], [place], [address], [employer] 04/13/2023 17:27:07 05/17/2023 text/html Here for well wo man exam. States she had labs, CT lungs for fu on lung nodule, and mammogram. All results reviewed.Still has boil under right arm. Not tender. Improvement since having antibiotic. Jael Ortiz NP [address], [address], [place], [address], [employer] 05/17/2023 18:15:39 02/15/2025 text/html Ashley Marrero is a 49 year old female patient here today to establish care. She has a history of absent taste and smell. She did see an ENT provider approx 4 years ago and was told this was likely COVID related. These symptoms are still present.MRI sinuses was conducted in he states she can still taste sweet and sour She denies headaches or migraines, denies muscle fatigue, denies weakness. History of hypertension, previously took medications for this but does not now. BP on arrival 170/110 A1C 6.7 in 2021. She states she eats a clean diet. She does exercise daily and teaches Nacho Flu shot: declinesCOVID vaccines: declinesTDap: declinesMammogram: 2022, ordered todayWWE: Normal 05/18/2023 Saniya Ram, FAMILY PRACTICE PHYSICIAN ASSISTANT [address] [facility], [facility] [address], [place], [address], [facility] 02/15/2025 14:41:14 OBGyn Episode No OBEpisode recorded.
== END 2025-04-08 12:15 | disposition home or self-care (01) ==
DX: R43.0 Anosmia (principal)
CPT/HCPCS: 70553; A9579

== ENCOUNTER 2025-08-06 13:47 | Outpatient (CLI) | payer OTHER, SELFPAY ==
--- NOTE | ~2025-08-06 | US_ITS ---
EXAMINATION: US pelvic complete w TV DATE: 08/06/2025 14:59 INDICATION: Abnormal uterine and vaginal bleeding. TECHNIQUE: Multiple transabdominal and transvaginal sonographic images of the pelvis were obtained. COMPARISON: None. FINDINGS: TRANSABDOMINAL ULTRASOUND: There are changes of supracervical hysterectomy. There is a 3.3 cm mass in the area of lower uterine segment. There is no free fluid in the pelvis. TRANSVAGINAL ULTRASOUND: The right ovary is not visualized. The left ovary measures 2.3 x 1.2 x 2.0 cm. IMPRESSION: 1. 3.3 cm mass in the area of the lower uterine segment status post supracervical hysterectomy. This finding could be a uterine fibroid or cervical cancer. Reviewed, dictated and finalized at location E. IMPRESSION: 1. 3.3 cm mass in the area of the lower uterine segment status post supracervic al hysterectomy. This finding could be a uterine fibroid or cervical cancer.
--- OUTSIDE RECORDS SUMMARY | 2025-08-06 15:19 | XMS_ITS | Clinical Summary ---
Author Organization [facility] Address [address] [place] [address] Phone Care Team Providers Care Scanner Operator Name Role Phone Unavailable Primary Care Provider [...] on file Legal Sex Female 12:50 PM HAULAGE ENGINE OPERATOR Gender Identity Not on file Sexual Orientation Not on file Last Filed Vital Signs Vital Sign Reading Time Taken Comments Blood Pressure 139/97 01/02/2022 12:00 PM HAULAGE ENGINE OPERATOR Pulse 87 01/02/2022 12:00 PM HAULAGE ENGINE OPERATOR Temperature 37.2 C (99 F) 01/02/2022 12:00 PM HAULAGE ENGINE OPERATOR Respiratory Rate 21 01/02/2022 12:0 0 PM HAULAGE ENGINE OPERATOR Oxygen Saturation 100% 01/02/2022 12: 00 PM HAULAGE ENGINE OPERATOR Inhaled Oxygen Concentration - - Weight 131.7 kg (290 lb 6.4 oz) 01/01/2022 6:07 PM HAULAGE ENGINE OPERATOR Height 175.3 cm (5' 9) 01/01/2022 6:07 PM HAULAGE ENGINE OPERATOR Body Mass Index 42.88 01/01/2022 6:07 PM HAULAGE ENGINE OPERATOR Plan of Treatment Health Maintenance Due Date [...] 2018 ZOSTER VACCINE (1 of 2) 2023 Pre-Diabetes and Diabetes Screening 01/01/202501/01 INFLUENZA VACCINE (#1) 2025 Procedures Procedure Name Priority Date/Time Associated Diagnosis Comments HEMOGLOBIN A1C Stat 01/01/2022 1:19 PM HAULAGE ENGINE OPERATOR from Last 3 Months or Most Recently Relevant to Health Maintenance Results * HEMOGLOBIN A1C (01/01/2022 1:19 PM HAULAGE ENGINE OPERATOR) HEMOGLOBIN A1C 5.5 <5.7 % 01/01/2022 6:11 PM HAULAGE ENGINE OPERATOR [facility] EST. AVG GLUCOSE, A1C 111 mg/dL 01/01/2022 6:11 PM HAULAGE ENGINE OPERATOR [facility] Blood Venipuncture / Unknown 01/01/2022 1:19 PM HAULAGE ENGINE OPERATOR 01/01/2022 1:47 PM HAULAGE ENGINE OPERATOR Narrative [facility] - 01/01/2022 6:11 PM HAULAGE ENGINE OPERATOR HGB A1C INTERPRETATION NORMAL: <5.7% PRE-DIABETES: 5.7 - 6.4% DIABETES: 6.5% OR GREATER us Tia GODDARD CHEMISTRY ORDERABLES Final Re sult [facility] CLIA# [id number] [address] [place] [address] from Last 3 Months or Most Recently Relevant to Health Maintenance Insurance Advance Directives For more information, please contact: [phone] * Full Code (Latest Code Status on File) Date Activated Date Inactivated Comments 01/01/2022 11:48 PM 01/02/2022 8:06 PM
--- OUTSIDE RECORDS SUMMARY | 2025-08-06 15:19 | XMS_ITS | Clinical Summary ---
Author Organization [facility] Address [address] [place] [address] Care Team Providers Care Machine Tack Puller Name Role Phone Saniya Ram MARKETING REPRESENTATIVE Primary Care Provider Allergies No known active allergies Medications losartan (COZAAR) 50 mg tablet Take 1 tablet every day by oral route as directed for 90 days. 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 Gender Identity Not on file Sexual Orientation Not on file Obstetrics History Last Filed Vital Signs Vital Sign Reading Time Taken Comments Blood Pressure 139/85 05/27/2025 1:30 PM CDT Pulse 88 05/27/2025 1:30 PM CDT Temperature - - Respiratory Rate 20 05/27/2025 1:30 PM CDT Oxygen Saturation 100% 05/27/2025 1:30 PM CDT Inhaled Oxygen Concentration - - Weight 99.8 kg (220 lb) 05/27/2025 1:30 PM CDT Height 175.3 cm (5' 9) 05/27/2025 1:30 PM CDT Body Mass Index 32.49 05/27/2025 1:30 PM CDT Plan of Treatment Health Maintenance Due Date Last Done Comments Breast Cancer Screening-Mammogram 1973 Cervical Cancer Screening 1973 Colon Cancer Screening-Colonoscopy 1973 Depression Screening 1973 Hepatitis C Screening 1973 Hepatitis B Screening 1991 Regular Well Visit/Exam 18-64 1991 Zoster Vaccine (1 of 2) 2023 Influenza Vaccine (#1) 2025 DTaP/Tdap/Td Vaccine (2 - Td or Tdap) 09/26/2025 09/26/2015 Pneumococcal vaccine <65 Aged Out No longer eligible based on patient's age to complete this topic Insurance [facility] CHOICE [facility]US [facility] HMO/PP[place] [address] Care Teams Machine Tack Puller Relationship Specialty Start Date End Date Saniya Ram NP [facility]mar[facility] [place] [address] PCP - General Nurse Practitioner 04/15/25
--- OUTSIDE RECORDS SUMMARY | 2025-08-06 15:19 | XMS_ITS | Patient Health Record ---
Author Organization [facility] Address [address] [place] [address] Care Team Providers Care Housing Project Manager Name Role Phone Elmer Mayorga [phone] Allergies No Known Allergies Reason For Referral No Information Social History Tobacco Use: Social History Observation Description Date Details (start date - stop date) Never Smoker NA - NA Tobacco Use/Smoking Question Answer Notes Are you a nonsmoker Plan Of Treatment No Information Medical (General) History Surgical History Surgery Date(Month/Year)
== END 2025-08-06 13:48 | disposition home or self-care (01) ==
PROVIDERS: Visit Provider Obstetrics & Gynecology
DX: N93.9 Abnormal uterine and vaginal bleeding, unspecified (principal); Z90.711 Acquired absence of uterus with remaining cervical stump
CPT/HCPCS: 76830; 76856

== ENCOUNTER 2025-08-13 14:45 | Outpatient (CLI) | payer OTHER, SELFPAY ==
--- OUTSIDE RECORDS SUMMARY | 2025-08-13 16:15 | XMS_ITS | Clinical Summary ---
Author Organization [facility] Address [address] [place] [phone] Care Team Providers Care Bend Sorter Name Role Phone Saniya Ram COLD SAW OPERATOR Primary Care Provider Allergies No known active allergies Medications losartan (COZAAR) 50 mg tablet Take 1 tablet every day by oral route as directed for 90 days. 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
--- OUTSIDE RECORDS SUMMARY | 2025-08-13 16:15 | XMS_ITS | Clinical Summary ---
Author Organization [facility] Address [address] [place] [address] Phone Care Team Providers Care Crm Marketing Executive Name Role Phone Unavailable Primary Care Provider [...] on file Legal Sex Female 12:50 PM AUTOMOBILE SALES REPRESENTATIVE Gender Identity Not on file Sexual Orientation Not on file Last Filed Vital Signs Vital Sign Reading Time Taken Comments Blood Pressure 139/97 01/02/2022 12:00 PM AUTOMOBILE SALES REPRESENTATIVE Pulse 87 01/02/2022 12:00 PM AUTOMOBILE SALES REPRESENTATIVE Temperature 37.2 C (99 F) 01/02/2022 12:00 PM AUTOMOBILE SALES REPRESENTATIVE Respiratory Rate 21 01/02/2022 12:0 0 PM AUTOMOBILE SALES REPRESENTATIVE Oxygen Saturation 100% 01/02/2022 12: 00 PM AUTOMOBILE SALES REPRESENTATIVE Inhaled Oxygen Concentration - - Weight 131.7 kg (290 lb 6.4 oz) 01/01/2022 6:07 PM AUTOMOBILE SALES REPRESENTATIVE Height 175.3 cm (5' 9) 01/01/2022 6:07 PM AUTOMOBILE SALES REPRESENTATIVE Body Mass Index 42.88 01/01/2022 6:07 PM AUTOMOBILE SALES REPRESENTATIVE Plan of Treatment Health Maintenance Due Date [...] Comments HEMOGLOBIN A1C Stat 01/01/2022 1:19 PM AUTOMOBILE SALES REPRESENTATIVE from Last 3 Months or Most Recently Relevant to Health Maintenance Results * HEMOGLOBIN A1C (01/01/2022 1:19 PM AUTOMOBILE SALES REPRESENTATIVE) HEMOGLOBIN A1C 5.5 <5.7 % 01/01/2022 6:11 PM AUTOMOBILE SALES REPRESENTATIVE [facility] EST. AVG GLUCOSE, A1C 111 mg/dL 01/01/2022 6:11 PM AUTOMOBILE SALES REPRESENTATIVE [facility] Blood Venipuncture / Unknown 01/01/2022 1:19 PM AUTOMOBILE SALES REPRESENTATIVE 01/01/2022 1:47 PM AUTOMOBILE SALES REPRESENTATIVE Narrative [facility] - 01/01/2022 6:11 PM AUTOMOBILE SALES REPRESENTATIVE HGB A1C INTERPRETATION NORMAL: <5.7% PRE-DIABETES: 5.7 - 6.4% DIABETES: 6.5% OR GREATER us Tia GODDARD CHEMISTRY ORDERABLES Final Re sult [facility] CLIA# [id number] [place] [address] from Last 3 Months or Most Recently Relevant to Health Maintenance Insurance Advance Directives For more information, please contact: [phone] * Full Code (Latest Code Status on File) Date Activated Date Inactivated Comments 01/01/2022 11:48 PM 01/02/2022 8:06 PM
[2025-08-14 08:09] LABS: FSH 9.4 mIU/mL (.)
[2025-08-16 14:08] LABS: Estrogens, Total 94 pg/mL (.)
[2025-08-19 10:08] LABS: Free Testosterone (Direct) 1.0 pg/mL (0.0-4.2)
== END 2025-08-13 14:46 | disposition home or self-care (01) ==
LOC: ANHLAB 14:46
PROVIDERS: Visit Provider Obstetrics & Gynecology
DX: N95.1 Menopausal and female climacteric states (principal)
CPT/HCPCS: 82672; 83001; 84402; 84403